=== PATIENT | male | born 1950 | race Caucasian/White ===

== ENCOUNTER 2016-07-01 13:08 | Emergency (ER) | payer MEDICARE, MEDICAID ==
[2016-07-01] MEDS ORDERED: METHYLPREDNISOLONE PF 125MG/VIAL IVP ONE (13:28)
[2016-07-01] MEDS ORDERED: IPRATROPIUM/ALBUTEROL (0.5MG/3MG) NEB INH ONE (13:28)
--- NOTE | 2016-07-01 13:32 | Emergency Department Record ---
History of Present Illness - General Chief Complaint: Difficulty Breathing Stated Complaint: LUZ/NECK SWELLING/EYES SWOLLEN Time Seen by Provider: 07/01/16 13:28 Source: Patient Mode of Arrival: Ambulatory Limitations: No limitations - History of Present Illness Initial Comments: 65 yo male presents to ED with a CC of difficulty breathing, wheezing, and cough symptoms for the past 1 week. Patient denies fevers or chills, reports non-productive cough symptoms. Patient denies chest pain or discomfort. Patient does report mild "neck swelling" but denies throat swelling or tightness. MD Complaint: Shortness of breath Onset/Timin -: Week(s) Radiation: Neck Severity: Moderate Consistency: Constant Improves With: Rest, Upright position Worsens With: Coughing, Movement Associated Symptoms: Cough, Fever, Nausea/vomiting Treatments Prior to Arrival: None - Related Data Home Oxygen Therapy: No Allergies Allergy/AdvReac Type Severity Reaction Status Date / Time No Known Drug Allergies Allergy Verified 07/01/16 13:24 Travel Screening - Travel/Exposure Within Last 30 Days Have you traveled within the last 30 days?: No Review of Systems Constitutional: Denies: Chills, Fever, Malaise, Night sweats Eyes: Denies: Eye discharge, Eye pain ENT: Reports: Congestion. Denies: Ear pain, Epistaxis Respiratory: Reports: Cough, Dyspnea, Wheezes Cardiovascular: Denies: Chest pain, Dyspnea on exertion, Palpitations Endocrine: Denies: Fatigue, Heat or cold intolerance Gastrointestinal: Denies: Abdominal pain, Nausea, Vomiting Genitourinary: Denies: Incontinence, Retention Musculoskeletal: Denies: Arthralgia, Back pain, Gout, Joint swelling Skin: Denies: Bruising, Change in color Neurological: Denies: Abnormal gait, Confusion, Headache, Seizure Psychiatric: Denies: Anxiety Hematological/Lymphatic: Denies: Anemia, Blood Clots Past Medical History - SOCIAL HISTORY Smoking Status: Never smoker Alcohol Use: None Drug Use: None - RESPIRATORY Hx Respiratory Disorders: No - CARDIOVASCULAR Hx Cardio Disorders: Yes Hx Hypertension: Yes - NEURO Hx Neuro Disorders: Yes Hx Dizziness: Yes - GI Hx GI Disorders: No - Hx Genitourinary Disorders: No - ENDOCRINE Hx Endocrine Disorders: Yes Hx Diabetes: Yes Hx Thyroid Disease: Yes - MUSCULOSKELETAL Hx Musculoskeletal Disorders: Yes Hx Arthritis: Yes - PSYCH Hx Psych Problems: No - HEMATOLOGY/ONCOLOGY Hx Hematology/Oncology Disorders: No Family Medical History Any Significant Family History?: Yes Hx Heart Disease: Father Hx Stroke: Brother/Sister Physical Exam - General General Appearance: Alert, Oriented x3, Cooperative, Moderate distress (patient appears tachypnic on exmaination) Limitations: No limitations - Head Head exam: Atraumatic, Normocephalic, Normal inspection Head exam detail: negative: Abrasion, Contusion, Espinoza's sign, General tenderness, Hematoma, Laceration - Eye Eye exam: Normal appearance. negative: Conjunctival injection, Periorbital swelling, Periorbital tenderness, Scleral icterus - ENT Ear exam: negative: Auricular hematoma, Auricular trauma Nasal Exam: negative: Active bleeding, Discharge, Dried blood, Foreign body Mouth exam: negative: Drooling, Laceration, Muffled voice, Tongue elevation - Neck Neck exam: Normal inspection. negative: Meningismus, Tenderness - Respiratory Respiratory exam: Decreased breath sounds, Prolonged expiratory, Respiratory distress, Wheezes. negative: Rhonchi, Stridor - Cardiovascular Cardiovascular Exam: Regular rate, Normal rhythm, Normal heart sounds - GI/Abdominal GI/Abdominal exam: Soft. negative: Rebound, Rigid, Tenderness - Rectal Rectal exam: Deferred - exam: Deferred - Extremities Extremities exam: Normal inspection. negative: Pedal edema, Tenderness - Back Back exam: Denies: CVA tenderness (R), CVA tenderness (L) - Neurological Neurological exam: Alert, Normal gait, Oriented X3 - Psychiatric Psychiatric exam: Normal affect, Normal mood - Skin Skin exam: Normal color. negative: Abrasion Type of lesion: negative: abrasion Course Vital Signs 07/01/16 13:16 Temperature 97.8 F Pulse Rate 81 Respiratory 28 H Rate Blood Pressure 164/79 Pulse Ox 89 L - Reevaluation(s) Reevaluation #1: 07/01/16 14:33 Labs reviewed and are grossly unremarkable for an acute process. Reevaluation #2: 07/01/16 14:40 CXR: Findings suggestive of possible developing pulmonary edema, small bilateral effusions are present Reevaluation #3: 07/01/16 15:06 EKG: NSR 72 Normal axis, normal intervals nonspecific ST-T wave changes I, AVL. Reevaluation #4: 07/01/16 15:24 Troponin resulted at 0.053, BNP 1460. Aspirin ordered for elevated Troponin, will transfer for cardiac evaluation and likely echo for possible heart failure. Will initiate transfer at this time. Reevaluation #5: 07/01/16 16:01 Case was discussed with Dr. Dotson, will accept admission. Medical Decision Making - Lab Data Result diagrams: 07/01/16 13:20 07/01/16 13:20 Disposition Disposition: Transfer Clinical Impression: Elevated troponin I level, Hypoxia, Respiratory distress CHF (congestive heart failure) Qualifiers: Congestive heart failure type: unspecified congestive heart failure type Congestive heart failure chronicity: acute Qualified Code(s): I50.9 - Heart failure, unspecified Disposition: Acute Care Hospital Transfer Transfer To: [facility] Reason For Transfer: Cardiac evaluation Accepting Physician: Nila Time Discussed w/Accepting Physician: 16:02 Condition: (2) Stable Forms: Patient Portal Access Time of Disposition: 16:03
[2016-07-01 13:36] LABS: BASO % 0.4 % (0-6); EOS % 0.9 % (0-6); GRAN % 71.2 % (47-80); HEMATOCRIT 40.4 % (42.0-52.0); HEMOGLOBIN 12.4 gm/dl (14.0-18.0); LYMPH % 19.7 % (16-45); MEAN CELL VOLUME 88.6 fl (81-97); MEAN CORPUSCULAR HGB CONC 30.7 g/dl (32-36); MEAN PLATELET VOLUME 9.5 fl (7.4-10.4); MONO % 7.8 % (0-9); PLATELET COUNT 147 K/uL (130-400); RED BLOOD COUNT 4.56 M/uL (4.40-5.70); RED CELL DISTRIBUTION WIDTH 15.8 % (11.5-14.5); WHITE BLOOD COUNT W/O DIFF 5.5 K/uL (4.2-12.2)
[2016-07-01 13:37] LABS: MEAN CORPUSCULAR HEMOGLOBIN 27.1 pg (27-33)
[2016-07-01 13:47] LABS: ALBUMIN 3.9 gm/dL (3.5-5.0); ALKALINE PHOSPHATASE 102 U/L (38-126); ALT/SGPT 29 U/L (21-72); ANION GAP 8.9 (7-16); AST/SGOT 35 U/L (17-59); BILIRUBIN,TOTAL 1.28 mg/dL (0.2-1.3); BLOOD UREA NITROGEN 18 mg/dL (9-20); CARBON DIOXIDE 32.1 mmol/L (22-30); EST GLOMERULAR FILTRATION RATE > 60 ml/min; GLUCOSE,RANDOM 153 mg/dL (70-110); TOTAL PROTEIN 7.7 gm/dL (6.3-8.2)
[2016-07-01 15:16] LABS: CKMB 2.1 ug/L (0-6); TROPONIN I 0.053 ng/mL (0.00-0.034)
[2016-07-01] MEDS ORDERED: ASPIRIN 81 MG CHEWABLE TABLET PO ONE (15:24)
== END 2016-07-01 18:56 | disposition short-term general hospital (02) ==
LOC: ER 13:08
DX: I50.9 Heart failure, unspecified (principal); R09.02 Hypoxemia; R79.89 Other specified abnormal findings of blood chemistry; R11.2 Nausea with vomiting, unspecified; I10 Essential (primary) hypertension; E11.9 Type 2 diabetes mellitus without complications
CPT/HCPCS: 71020; 80053; 82550; 82553; 83880; 84484; 85025; 93005; 93010; 94640; 96374; 99285; J2930